=== PATIENT | female | born 1960 | race Caucasian/White ===

== ENCOUNTER 2021-12-01 09:50 | Inpatient (IN) ==
[2021-12-01] MEDS ORDERED: ACETAMINOPHEN 1,000 MG/100 ML VIAL IV STA (11:01)
[2021-12-01] MEDS ORDERED: ONDANSETRON INJ 2 MG/ML 2 ML VIAL IV STA (11:13)
[2021-12-01] MEDS ORDERED: ONDANSETRON INJ 2 MG/ML 2 ML VIAL ONE (11:14)
[2021-12-01] MEDS ORDERED: SODIUM CHLORIDE 0.9% 1000ML 1,000 ML IV SCH ×2 (11:15→15:15)
[2021-12-01 11:25] LABS: Hematocrit (blood only) 38.4 % (37-47); Hemoglobin 12.8 g/dL (12.0-16.0); Mean Corpuscular Hemoglobin 31.1 pg (25-34); Mean Corpuscular Hgb Conc 33.3 g/dL (32-36); Mean Corpuscular Volume 93.2 fL (80-100); Mean Platelet Volume 9.5 fL (7.4-10.4); Platelet Count 504 K/uL (130-400); RDW Standard Deviation 44.9 fL (36.4-46.3); Red Blood Count 4.12 M/uL (4.2-5.4); White Blood Count 20.02 K/uL (4.8-10.8)
--- NOTE | 2021-12-01 11:33 | XRay Report ---
XR chest 1V portable CLINICAL HISTORY: SEPSIS. COMPARISON STUDY: 02/04/2014 TECHNIQUE: 1 view of the chest FINDINGS: Single frontal view of the chest demonstrates the cardiomediastinal silhouette to be within normal li mits. There is a decreased inspiratory effort with elevation of the hemidiaphragms and crowding of th e bronchovascular markings at the lung bases and centrally. The lungs are clear of alveolar opacities . There is no evidence for pleural effusion. There is no evidence for vascular congestion. There is n o acute osseous pathology. IMPRESSION: 1. There is a decreased inspiratory effort with otherwise no acute chest disease. ACT 112: Negative or not required by law. Electronically signed by: Mike Hussein M.D. 12/01/2021 11:31 AM
[2021-12-01 11:38] LABS: Albumin Globulin Ratio 0.9 (0.9-2); Albumin Level 3.6 gm/dl (3.4-5.0); BUN Creatinine Ratio 13.8 (10-20); Bilirubin,Total 0.6 mg/dl (0.2-1.0); Calcium 9.2 mg/dl (8.5-10.1); Est GFR (African American) 92.9 ml/min; Est GFR (Non-African American) 80.1 ml/min; Globulin 3.8 gm/dl (2.5-4.0); Magnesium 2.1 mg/dl (1.7-2.4); Potassium 3.9 mmol/L (3.5-5.1); Total Protein 7.4 gm/dl (6.0-8.3)
[2021-12-01 11:43] LABS: Troponin I High Sensitivity 4.5 pg/ml (0-14)
[2021-12-01 11:49] LABS: INR 1.2 (0.9-1.1); Prothrombin Time 12.9 Seconds (9.0-12.0)
[2021-12-01 11:50] LABS: Basophils # (auto) 0.01 K/uL (0-0.2); Eosinophils # (auto) 0.23 K/uL (0-0.5); Eosinophils % (auto) 1.1 %; Immature Granulocytes # (auto) 0.06 K/uL (0.00-0.02); Immature Granulocytes % (auto) 0.3 %; Lymphocytes # (auto) 0.73 K/uL (1.2-3.4); Lymphocytes % (auto) 3.6 %; Monocytes # (auto) 0.85 K/uL (0.11-0.59); Monocytes % (auto) 4.2 %; Neutrophils # (auto) 18.14 K/uL (1.4-6.5); Neutrophils % (auto) 90.8 %
[2021-12-01 12:43] LABS: Adenovirus PCR Not Detected (NotDetected); Bordetella parapertussis PCR Not Detected (NotDetected); Bordetella pertussis PCR Not Detected (NotDetected); Chlamydia pneumoniae PCR Not Detected (NotDetected); Coronavirus 229E PCR Not Detected (NotDetected); Coronavirus CoV-2 (COVID19)PCR Not Detected (NotDetected); Coronavirus HKU1 PCR Not Detected (NotDetected); Coronavirus NL63 PCR Not Detected (NotDetected); Coronavirus OC43PCR Not Detected (NotDetected); Human Metapneumovirus PCR Not Detected (NotDetected); Influenza A PCR Not Detected (NotDetected); Influenza B PCR Not Detected (NotDetected); Mycoplasma pneumoniae PCR Not Detected (NotDetected); Parainfluenza Virus 1 PCR Not Detected (NotDetected); Parainfluenza Virus 2 PCR Not Detected (NotDetected); Parainfluenza Virus 3 PCR Not Detected (NotDetected); Parainfluenza Virus 4 PCR Not Detected (NotDetected); Respiratory Syncytial VirusPCR Not Detected (NotDetected); Rhinovirus/Enterovirus PCR Not Detected (NotDetected)
[2021-12-01] MEDS ORDERED: OPTIRAY 320 100ml IV ONE (13:00)
[2021-12-01] MEDS ORDERED: SODIUM CHLORIDE 0.9% 1000ML 1,000 ML IV ONE (13:05)
--- NOTE | 2021-12-01 13:19 | CT Scan Report ---
CT abd pelvis IV con only CLINICAL HISTORY: abd/low back pain, recent UTI TECHNIQUE: Helical axial images of the abdomen and pelvis were obtained and displayed. Automated dose lowering techniques and/or adjustment according to patient size were utilized for this exam. This e xam was performed with intravenous contrast. CT DOSE: 762.34 mGycm COMPARISON: None available at the time of this dictation. FINDINGS: Lower chest: Bibasilar atelectasis versus scarring is seen. A small amount of pleural fluid is seen bilaterally. Liver: Unremarkable. No focal lesions are seen. Gallbladder and biliary tree: No calcified gallstones. Normal caliber wall. No intra- or extrahepatic biliary ductal dilation. Pancreas: Unremarkable, no focal lesions. Spleen: Unremarkable. Adrenals: Unremarkable. Kidneys and ureters: Subcentimeter hypodensities are too small to characterize. Bladder: Limited evaluation due to underdistention. Reproductive organs: Unremarkable. Bowel: Unremarkable. Lymph nodes Retroperitoneal: Unremarkable. Mesenteric: Unremarkable. Pelvic: Unremarkable. Peritoneum: Normal. Vessels: Unremarkable. Abdominal wall: Unremarkable. Bones: Degenerative changes in the visualized spine. IMPRESSION: No acute abnormalities, in particular no evidence of pyelonephritis. Degenerative changes are seen in the spine without evidence of acute fracture. ACT 112: Negative or not required by law. Electronically signed by: Walter Christianson M.D. 12/01/2021 1:18 PM
--- NOTE | 2021-12-01 13:19 | Emergency Department Note ---
History of Present Illness General Chief complaint: Fever Stated complaint: NAUSEA, FEVER Time Seen by Provider: 12/01/21 10:43 Source: patient Mode of arrival: ambulatory Limitations: no limitations History of Present Illness Provider complaint: Fever, nausea, recent UTI Onset (ago): day(s) Maximum Pain Intensity: 5 Associated symptoms: + fever/chills, + loss of appetite, + malaise and + nausea/vomiting; no cough, no headaches or no shortness of breath Treatments prior to arrival: NSAID This is a 61-year-old female presents emergency department complaining of fevers, nausea/vomiting, and recent UTI. Patient states she was diagnosed by her PCP with a UTI last week. She was initially started on Bactrim and then changed to Macrobid due to a rash/allergic reaction to the Bactrim. Patient states she did complete the Macrobid 2 days ago, and yesterday began noting worsening symptoms. Patient states she has had increased fatigue over several days, no overt dizziness or syncope. She denies any change in urine or stools, denies chest pain, denies cough or cold symptoms, denies shortness of breath, denies abdominal pain. Patient does complain of some low back pain. No prior history of kidney stones or pyelonephritis. Patient denies any other change in medications or known sick contact. Patient and at bedside states they did recently travel for a son's wedding. Pt seen during a time of high acuity and national emergency pandemic while wearing PPE. Home Medications Medication Instructions Recorded Confirmed Type albuterol sulfate 90 mcg/actuation 2 puff INHALATION DIRECTED PRN 12/01/21 12/01/21 History aerosol inhaler fexofenadine 180 mg tablet 180 mg PO DAILY 12/01/21 12/01/21 History fluticasone propionate 50 2 spray INTRANASAL DAILY 12/01/21 12/01/21 History mcg/actuation nasal spray,suspension lisinopril 5 mg tablet 5 mg PO DAILY 12/01/21 12/01/21 History montelukast 10 mg tablet 10 mg PO HS PRN 12/01/21 12/01/21 History nitrofurantoin 100 mg PO BID 12/01/21 12/01/21 History monohydrate/macrocrystals 100 mg capsule Allergies Allergy/AdvReac Type Severity Reaction Status Date / Time Penicillins Allergy Severe ANAPHALYSIX Verified 12/01/21 11:18 Sulfa (Sulfonamide Allergy Severe HIVES Verified 12/01/21 11:18 Antibiotics) ciprofloxacin Allergy Intermediate RED RASH Verified 12/01/21 11:18 ON CHEST Past Med/Surg History Medical History HTN (hypertension) Intermittent asthma Seasonal allergies Surgical History History of appendectomy Family History (Updated 12/01/21 @ 20:00 by HUMBERTO Burnett) Mother Cancer Social History Smoking Status: Former smoker Hx Alcohol Use: Yes Alcohol type: beer and wine Alcohol Intake Frequency: 2-4 x/Month Hx Substance Use: No Preferred Language: Pry[place]in[place] Communication Ability: Effective [employer] Required: No Beliefs That Will Affect Care: None marital status: Current Living Situation: Spouse Other Information That Helps Us Care for You: No Feels Safe at Home: Yes Safety Concerns: Feels Safe At This Time Assistive Devices: None Review of Systems A total of 10 systems reviewed and were otherwise negative All systems reviewed & are unremarkable except as noted in HPI & below Physical Exam Vital Signs Vital Signs - 24 hr 12/01/21 09:55 12/01/21 10:53 12/01/21 11:01 Temperature 38.3 C H Temperature Source Temporal Artery Scan Pulse Rate 133 H Pulse Rate [Apical] 104 H Pulse Rate from SpO2 Sensor Respiratory Rate 18 26 H Respiratory Effort / Characteristics Blood Pressure 121/88 Blood Pressure [Left Arm] 124/81 Blood Pressure Mean 99 Blood Pressure Mean [Left Arm] 95 Pulse Oximetry 91 93 Oxygen Delivery Method Room Air Nasal Cannula Oxygen Flow Rate 3 Sepsis Recent Fever Within 48 Hours Yes Sepsis New/Unexplained Change in Mental Status No Sepsis Action Taken by Nursing No Action Required 12/01/21 11:02 12/01/21 11:06 12/01/21 11:30 Temperature Temperature Source Pulse Rate 109 H 100 H Pulse Rate [Apical] Pulse Rate from SpO2 Sensor 108 H 101 H Respiratory Rate 24 24 Respiratory Effort / Characteristics Blood Pressure 115/74 Blood Pressure [Left Arm] Blood Pressure Mean 87 Blood Pressure Mean [Left Arm] Pulse Oximetry 94 92 Oxygen Delivery Method Room Air Nasal Cannula Nasal Cannula Oxygen Flow Rate 3 3 Sepsis Recent Fever Within 48 Hours Sepsis New/Unexplained Change in Mental Status Sepsis Action Taken by Nursing 12/01/21 11:31 12/01/21 11:45 12/01/21 12:00 Temperature Temperature Source Pulse Rate 95 H 91 H Pulse Rate [Apical] Pulse Rate from SpO2 Sensor 95 H 90 Respiratory Rate 28 H 26 H Respiratory Effort / Characteristics Non-Labored Spontaneous Blood Pressure 105/66 Blood Pressure [Left Arm] Blood Pressure Mean 79 Blood Pressure Mean [Left Arm] Pulse Oximetry 93 94 Oxygen Delivery Method Nasal Cannula Nasal Cannula Nasal Cannula Oxygen Flow Rate 3 3 Sepsis Recent Fever Within 48 Hours Sepsis New/Unexplained Change in Mental Status Sepsis Action Taken by Nursing 12/01/21 12:01 12/01/21 12:09 12/01/21 12:15 Temperature 37.2 C Temperature Source Oral Pulse Rate 92 H Pulse Rate [Apical] Pulse Rate from SpO2 Sensor 92 H Respiratory Rate 22 Respiratory Effort / Characteristics Non-Labored Spontaneous Blood Pressure Blood Pressure [Left Arm] Blood Pressure Mean Blood Pressure Mean [Left Arm] Pulse Oximetry 93 Oxygen Delivery Method Nasal Cannula Oxygen Flow Rate 3 Sepsis Recent Fever Within 48 Hours Sepsis New/Unexplained Change in Mental Status Sepsis Action Taken by Nursing 12/01/21 12:30 12/01/21 13:03 Temperature Temperature Source Pulse Rate 88 Pulse Rate [Apical] Pulse Rate from SpO2 Sensor 88 88 Respiratory Rate 25 H Respiratory Effort / Characteristics Blood Pressure 96/54 L Blood Pressure [Left Arm] Blood Pressure Mean 68 Blood Pressure Mean [Left Arm] Pulse Oximetry 94 95 Oxygen Delivery Method Oxygen Flow Rate 3 3 Sepsis Recent Fever Within 48 Hours Sepsis New/Unexplained Change in Mental Status Sepsis Action Taken by Nursing GENERAL: alert, ill appearing, well nourished, no distress, non-toxic EYE EXAM: normal conjunctiva, PERRL and EOM's grossly intact OROPHARYNX: no exudate, no erythema, lips, buccal mucosa, and tongue normal and mucous membranes are moist NECK: supple, no nuchal rigidity, no adenopathy, non-tender LUNGS: Clear to auscultation. Normal chest wall mechanics, no w/r/r, no tachypn ea or increased work of breathing, mildly hypoxic on room air at 89% HEART: no murmurs, S1 normal and S2 normal, sinus tachycardia on telemetry ABDOMEN: abdomen soft, non-tender, normo-active bowel sounds, no masses, no rebound or guarding. BACK: Back is symmetrical on inspection and there is no deformity, no midline tenderness, no CVA tenderness. SKIN: no rashes and no bruising UPPER EXTREMITIES: upper extremities are grossly normal. FROM, nml pulses b/l. LOWER EXTREMITIES: No pitting edema. FROM, nml pulses b/l. NEURO EXAM: Normal sensorium, cranial nerves II-XII grossly intact, normal speech, no gross weakness of arms, no gross weakness of legs. Gross sensation intact. Course Course 1315: Patient updated on results thus far. Heart rate improved. Administered Medications Fexofenadine HCl (Fexofenadine Hcl 180 Mg Tab) 180 mg PO DAILY WYATT Stop: 01/01/22 08:59 Last Admin: 12/02/21 07:52 Dose: 180 mg Documented by: [id number] Doxycycline Hyclate 100 mg/ (Dextrose) 110 mls @ 50 mls/hr IV Q12H WYATT Stop: 12/11/21 21:59 Last Infusion: 12/02/21 14:38 Dose: 0 mls/hr Documented by: [id number] Infusion: 12/02/21 12:30 Dose: 50 mls/hr Documented by: [id number] Infusion: 12/02/21 12:23 Dose: 0 mls/hr Documented by: [id number] Admin: 12/02/21 12:01 Dose: 50 mls/hr Documented by: [id number] Infusion: 12/01/21 23:31 Dose: 0 mls/hr Documented by: [id number] Admin: 12/01/21 21:15 Dose: 50 mls/hr Documented by: [id number] Sodium Chloride (Nss 1000ml) 1,000 mls @ 125 mls/hr IV .Q8H WYATT Stop: 12/31/21 19:46 Last Admin: 12/02/21 20:04 Dose: 125 mls/hr Documented by: [id number] Infusion: 12/02/21 20:04 Dose: 125 mls/hr Documented by: [id number] Infusion: 12/02/21 15:51 Dose: 125 mls/hr Documented by: [id number] Infusion: 12/02/21 15:23 Dose: 0 mls/hr Documented by: [id number] Infusion: 12/02/21 12:30 Dose: 125 mls/hr Documented by: [id number] Infusion: 12/02/21 12:23 Dose: 0 mls/hr Documented by: [id number] Admin: 12/02/21 12:01 Dose: 125 mls/hr Documented by: [id number] Infusion: 12/02/21 12:01 Dose: 125 mls/hr Documented by: [id number] Admin: 12/02/21 04:31 Dose: 125 mls/hr Documented by: [id number] Infusion: 12/02/21 04:19 Dose: 125 mls/hr Documented by: [id number] Admin: 12/01/21 20:19 Dose: 125 mls/hr Documented by: [id number] Lisinopril (Lisinopril 5 Mg Tab) 5 mg PO DAILY WYATT Stop: 01/01/22 08:59 Last Admin: 12/02/21 07:52 Dose: 5 mg Documented by: [id number] Montelukast Sodium (Montelukast Sodium 10 Mg Tablet) 10 mg PO HS WYATT Stop: 12/31/21 20:59 Last Admin: 12/02/21 20:03 Dose: 10 mg Documented by: [id number] Admin: 12/01/21 21:14 Dose: 10 mg Documented by: [id number] Discontinued Medications Sodium Chloride (Nss 1000ml) 1,000 mls @ 999 mls/hr IV .Q1H1M WYATT Stop: 12/01/21 12:15 Last Infusion: 12/01/21 12:01 Dose: 0 mls/hr Documented by: [id number] Admin: 12/01/21 11:00 Dose: 999 mls/hr Documented by: [id number] Acetaminophen (Ofirmev) 1,000 mg in 100 mls @ 400 mls/hr IV NOW STA Stop: 12/01/21 11:15 Last Infusion: 12/01/21 11:32 Dose: 0 mls/hr Documented by: [id number] Admin: 12/01/21 11:17 Dose: 400 mls/hr Documented by: [id number] Sodium Chloride (Nss 1000ml) 1,000 mls @ 999 mls/hr IV .Q1H1M ONE Stop: 12/01/21 14:05 Last Infusion: 12/01/21 14:14 Dose: 0 mls/hr Documented by: [id number] Admin: 12/01/21 13:13 Dose: 999 mls/hr Documented by: [id number] Doxycycline Hyclate 100 mg/ (Dextrose) 110 mls @ 50 mls/hr IV NOW STA Stop: 12/01/21 15:47 Last Infusion: 12/01/21 16:04 Dose: 0 mls/hr Documented by: [id number] Admin: 12/01/21 13:52 Dose: 50 mls/hr Documented by: [id number] Sodium Chloride (Nss 1000ml) 1,000 mls @ 125 mls/hr IV .Q8H WYATT Stop: 12/31/21 15:14 Last Infusion: 12/01/21 19:48 Dose: 0 mls/hr Documented by: [id number] Admin: 12/01/21 16:20 Dose: 125 mls/hr Documented by: [id number] Ioversol (Optiray 320 100ml) 94 ml IV ONCE ONE Stop: 12/01/21 13:01 Last Admin: 12/01/21 13:01 Dose: 94 ml Documented by: [id number] Ondansetron HCl (Ondansetron Inj 2 Mg/Ml 2 Ml Vial) 4 mg IV NOW STA Stop: 12/01/21 11:14 Last Admin: 12/01/21 11:17 Dose: 4 mg Documented by: [id number] Ondansetron HCl (Ondansetron Inj 2 Mg/Ml 2 Ml Vial) Confirm Administered Dose 4 mg .ROUTE .STK-MED ONE Stop: 12/01/21 11:15 Last Admin: 12/01/21 11:17 Dose: Not Given Documented by: [id number] Medical Decision Making Differential Diagnosis Differential diagnosis: Etiologies such as viral syndrome, otitis, pharyngitis, pneumonia, influenza, meningitis, urinary tract infection, sepsis, bacteremia, as well as others were entertained. Medical Records Attestation: I reviewed the patient's medical records. Home Medications Current Medication List: was personally reviewed by me Laboratory Data Attestation: I reviewed the patient's lab results. Result diagrams: 12/02/21 05:30 12/02/21 05:30 Lab Results 12/01/21 12/01/21 12/01/21 Range/Units 10:58 10:58 10:58 WBC 20.02 H (4.8-10.8) K/uL RBC 4.12 L (4.2-5.4) M/uL Hgb 12.8 (12.0-16.0) g/dL Hct 38.4 (37-47) % MCV 93.2 (80-100) fL MCH 31.1 (25-34) pg MCHC 33.3 (32-36) g/dL RDW Std Deviation 44.9 (36.4-46.3) fL RDW Coeff of Latonya 13.0 (11.5-14.5) % Plt Count 504 H (130-400) K/uL MPV 9.5 (7.4-10.4) fL Immature Gran % (Auto) 0.3 % Neut % (Auto) 90.8 % Lymph % (Auto) 3.6 % [place] % (Auto) 4.2 % Eos % (Auto) 1.1 % Baso % (Auto) 0.0 % Neut # (Auto) 18.14 H (1.4-6.5) K/uL Lymph # (Auto) 0.73 L (1.2-3.4) K/uL [place] # (Auto) 0.85 H (0.11-0.59) K/uL Eos # (Auto) 0.23 (0-0.5) K/uL Baso # (Auto) 0.01 (0-0.2) K/uL Immature Gran # (Auto) 0.06 H (0.00-0.02) K/uL PT 12.9 H (9.0-12.0) Seconds INR 1.2 H (0.9-1.1) Sodium 132 L (136-145) mmol/L Potassium 3.9 (3.5-5.1) mmol/L Chloride 99 (98-107) mmol/L Carbon Dioxide 27 (21-32) mmol/L Anion Gap 6 (3-11) BUN 11 (6-23) mg/dl Creatinine 0.80 (0.6-1.2) mg/dl Est Cr Clr Drug Dosing 70.0 ml/min Est GFR ( Amer) 92.9 ml/min Est GFR (Non-Af Amer) 80.1 ml/min BUN/Creatinine Ratio 13.8 (10-20) Glucose 136 H (70-99(Fasting)) mg/dl Lactate (0.4-2.0) mmol/L Calcium 9.2 (8.5-10.1) mg/dl Magnesium 2.1 (1.7-2.4) mg/dl Total Bilirubin 0.6 (0.2-1.0) mg/dl AST 16 (13-39) U/L ALT 20 (7-52) U/L Alkaline Phosphatase 86 (34-104) U/L Troponin I High Sens 4.5 (0-14) pg/ml Total Protein 7.4 (6.0-8.3) gm/dl Albumin 3.6 (3.4-5.0) gm/dl Globulin 3.8 (2.5-4.0) gm/dl Albumin/Globulin Ratio 0.9 (0.9-2) Procalcitonin (0-0.5) ng/ml Urine Color Urine Appearance (Clear) Urine pH (4.5-7.5) Ur Specific [place] (1.000-1.030) Urine Protein (Negative) Urine Glucose (UA) (Negative) Urine Ketones (Negative) Urine Blood (Negative) Urine Nitrite (Negative) Urine Bilirubin (Negative) Urine Urobilinogen (Negative) Ur Leukocyte Esterase (Negative) Urine WBC (Auto) (0-5) /hpf Urine RBC (Auto) (0-4) /hpf U Hyaline Cast (Auto) (0-5) /lpf U Epithel Cells (Auto) (0-5) /lpf Urine Bacteria (Auto) (Negative) Adenovirus (PCR) (NotDetected) Anaplasma Smear See Comment Babesia Smear See Comment B. pertussis DNA (PCR) (NotDetected) B.parapertussis DNA PCR (NotDetected) Lyme Disease IgG Ab (Negative) Lyme Disease IgM Ab (Negative) C. pneumoniae DNA (PCR) (NotDetected) Coronavirus OC43 (PCR) (NotDetected) Coronavirus HKU1 (PCR) (NotDetected) Coronavirus 229E (PCR) (NotDetected) SARS-CoV-2 (PCR) (NotDetected) Coronavirus NL63 (PCR) (NotDetected) Human Metapneumovir PCR (NotDetected) Influenza Type A (PCR) (NotDetected) Influenza Type B (PCR) (NotDetected) M. pneumoniae (PCR) (NotDetected) Parainfluenza 1 (PCR) (NotDetected) Parainfluenza 2 (PCR) (NotDetected) Parainfluenza 3 (PCR) (NotDetected) Parainfluenza 4 (PCR) (NotDetected) RSV (PCR) (NotDetected) Entero/Rhino (PCR) (NotDetected) 12/01/21 12/01/21 12/01/21 Range/Units 10:58 10:58 10:58 WBC (4.8-10.8) K/uL RBC (4.2-5.4) M/uL Hgb (12.0-16.0) g/dL Hct (37-47) % MCV (80-100) fL MCH (25-34) pg MCHC (32-36) g/dL RDW Std Deviation (36.4-46.3) fL RDW Coeff of Latonya (11.5-14.5) % Plt Count (130-400) K/uL MPV (7.4-10.4) fL Immature Gran % (Auto) % Neut % (Auto) % Lymph % (Auto) % [place] % (Auto) % Eos % (Auto) % Baso % (Auto) % Neut # (Auto) (1.4-6.5) K/uL Lymph # (Auto) (1.2-3.4) K/uL [place] # (Auto) (0.11-0.59) K/uL Eos # (Auto) (0-0.5) K/uL Baso # (Auto) (0-0.2) K/uL Immature Gran # (Auto) (0.00-0.02) K/uL PT (9.0-12.0) Seconds INR (0.9-1.1) Sodium (136-145) mmol/L Potassium (3.5-5.1) mmol/L Chloride (98-107) mmol/L Carbon Dioxide (21-32) mmol/L Anion Gap (3-11) BUN (6-23) mg/dl Creatinine (0.6-1.2) mg/dl Est Cr Clr Drug Dosing ml/min Est GFR ( Amer) ml/min Est GFR (Non-Af Amer) ml/min BUN/Creatinine Ratio (10-20) Glucose (70-99(Fasting)) mg/dl Lactate 0.7 (0.4-2.0) mmol/L Calcium (8.5-10.1) mg/dl Magnesium (1.7-2.4) mg/dl Total Bilirubin (0.2-1.0) mg/dl AST (13-39) U/L ALT (7-52) U/L Alkaline Phosphatase (34-104) U/L Troponin I High Sens (0-14) pg/ml Total Protein (6.0-8.3) gm/dl Albumin (3.4-5.0) gm/dl Globulin (2.5-4.0) gm/dl Albumin/Globulin Ratio (0.9-2) Procalcitonin 0.54 H (0-0.5) ng/ml Urine Color Urine Appearance (Clear) Urine pH (4.5-7.5) Ur Specific [place] (1.000-1.030) Urine Protein (Negative) Urine Glucose (UA) (Negative) Urine Ketones (Negative) Urine Blood (Negative) Urine Nitrite (Negative) Urine Bilirubin (Negative) Urine Urobilinogen (Negative) Ur Leukocyte Esterase (Negative) Urine WBC (Auto) (0-5) /hpf Urine RBC (Auto) (0-4) /hpf U Hyaline Cast (Auto) (0-5) /lpf U Epithel Cells (Auto) (0-5) /lpf Urine Bacteria (Auto) (Negative) Adenovirus (PCR) (NotDetected) Anaplasma Smear Babesia Smear B. pertussis DNA (PCR) (NotDetected) B.parapertussis DNA PCR (NotDetected) Lyme Disease IgG Ab Positive A (Negative) Lyme Disease IgM Ab Equivocal A (Negative) C. pneumoniae DNA (PCR) (NotDetected) Coronavirus OC43 (PCR) (NotDetected) Coronavirus HKU1 (PCR) (NotDetected) Coronavirus 229E (PCR) (NotDetected) SARS-CoV-2 (PCR) (NotDetected) Coronavirus NL63 (PCR) (NotDetected) Human Metapneumovir PCR (NotDetected) Influenza Type A (PCR) (NotDetected) Influenza Type B (PCR) (NotDetected) M. pneumoniae (PCR) (NotDetected) Parainfluenza 1 (PCR) (NotDetected) Parainfluenza 2 (PCR) (NotDetected) Parainfluenza 3 (PCR) (NotDetected) Parainfluenza 4 (PCR) (NotDetected) RSV (PCR) (NotDetected) Entero/Rhino (PCR) (NotDetected) 12/01/21 12/01/21 Range/Units 11:27 13:14 WBC (4.8-10.8) K/uL RBC (4.2-5.4) M/uL Hgb (12.0-16.0) g/dL Hct (37-47) % MCV (80-100) fL MCH (25-34) pg MCHC (32-36) g/dL RDW Std Deviation (36.4-46.3) fL RDW Coeff of Latonya (11.5-14.5) % Plt Count (130-400) K/uL MPV (7.4-10.4) fL Immature Gran % (Auto) % Neut % (Auto) % Lymph % (Auto) % [place] % (Auto) % Eos % (Auto) % Baso % (Auto) % Neut # (Auto) (1.4-6.5) K/uL Lymph # (Auto) (1.2-3.4) K/uL [place] # (Auto) (0.11-0.59) K/uL Eos # (Auto) (0-0.5) K/uL Baso # (Auto) (0-0.2) K/uL Immature Gran # (Auto) (0.00-0.02) K/uL PT (9.0-12.0) Seconds INR (0.9-1.1) Sodium (136-145) mmol/L Potassium (3.5-5.1) mmol/L Chloride (98-107) mmol/L Carbon Dioxide (21-32) mmol/L Anion Gap (3-11) BUN (6-23) mg/dl Creatinine (0.6-1.2) mg/dl Est Cr Clr Drug Dosing ml/min Est GFR ( Amer) ml/min Est GFR (Non-Af Amer) ml/min BUN/Creatinine Ratio (10-20) Glucose (70-99(Fasting)) mg/dl Lactate (0.4-2.0) mmol/L Calcium (8.5-10.1) mg/dl Magnesium (1.7-2.4) mg/dl Total Bilirubin (0.2-1.0) mg/dl AST (13-39) U/L ALT (7-52) U/L Alkaline Phosphatase (34-104) U/L Troponin I High Sens (0-14) pg/ml Total Protein (6.0-8.3) gm/dl Albumin (3.4-5.0) gm/dl Globulin (2.5-4.0) gm/dl Albumin/Globulin Ratio (0.9-2) Procalcitonin (0-0.5) ng/ml Urine Color Yellow Urine Appearance Clear (Clear) Urine pH 6.5 (4.5-7.5) Ur Specific [place] 1.017 (1.000-1.030) Urine Protein Trace H (Negative) Urine Glucose (UA) Negative (Negative) Urine Ketones Negative (Negative) Urine Blood 1+ H (Negative) Urine Nitrite Negative (Negative) Urine Bilirubin Negative (Negative) Urine Urobilinogen Negative (Negative) Ur Leukocyte Esterase Negative (Negative) Urine WBC (Auto) 1-5 (0-5) /hpf Urine RBC (Auto) 5-10 H (0-4) /hpf U Hyaline Cast (Auto) 1-5 (0-5) /lpf U Epithel Cells (Auto) 20-30 H (0-5) /lpf Urine Bacteria (Auto) Negative (Negative) Adenovirus (PCR) Not Detected (NotDetected) Anaplasma Smear Babesia Smear B. pertussis DNA (PCR) Not Detected (NotDetected) B.parapertussis DNA PCR Not Detected (NotDetected) Lyme Disease IgG Ab (Negative) Lyme Disease IgM Ab (Negative) C. pneumoniae DNA (PCR) Not Detected (NotDetected) Coronavirus OC43 (PCR) Not Detected (NotDetected) Coronavirus HKU1 (PCR) Not Detected (NotDetected) Coronavirus 229E (PCR) Not Detected (NotDetected) SARS-CoV-2 (PCR) Not Detected (NotDetected) Coronavirus NL63 (PCR) Not Detected (NotDetected) Human Metapneumovir PCR Not Detected (NotDetected) Influenza Type A (PCR) Not Detected (NotDetected) Influenza Type B (PCR) Not Detected (NotDetected) M. pneumoniae (PCR) Not Detected (NotDetected) Parainfluenza 1 (PCR) Not Detected (NotDetected) Parainfluenza 2 (PCR) Not Detected (NotDetected) Parainfluenza 3 (PCR) Not Detected (NotDetected) Parainfluenza 4 (PCR) Not Detected (NotDetected) RSV (PCR) Not Detected (NotDetected) Entero/Rhino (PCR) Not Detected (NotDetected) Imaging Data Radiologist's Impression: Chest X-Ray 12/01/21 11:01 XR chest 1V portable CLINICAL HISTORY: SEPSIS. COMPARISON STUDY: 02/04/2014 TECHNIQUE: 1 view of the chest FINDINGS: Single frontal view of the chest demonstrates the cardiomediastinal silhouette to be within normal limits. There is a decreased inspiratory effort with elevation of the hemidiaphragms and crowding of the bronchovascular markings at the lung bases and centrally. The lungs are clear of alveolar opacities. There is no evidence for pleural effusion. There is no evidence for vascular congesti on. There is no acute osseous pathology. IMPRESSION: 1. There is a decreased inspiratory effort with otherwise no acute chest disease. ACT 112: Negative or not required by law. Electronically signed by: Mike Hussein M.D. 12/01/2021 11:31 AM MDM Narrative An order was placed for continuous cardiac monitoring. The monitor shows a rate of 117__ with _sinus tachycardia__ rhythm. This is a 61-year-old female presents to the emergency department complaining of fevers, nausea, generalized weakness and recent UTI. Patient was ill-appearing on exam, was noted to be tachycardic, tachypneic, febrile on arrival, with mild hypoxia on room air at 89% despite no complaints of respiratory distress or shortness of breath. A sepsis work-up was started and patient given IV fluids and IV Tylenol for fever, IV Zofran for the nausea. Patient's heart rate and respiratory rate did improve. Patient's oxygenation improved on 1 to 2 L via nasal cannula. Lab work revealed a significant leukocytosis at 20, mildly elevated procalcitonin, other electrolytes, renal and liver profiles were reassuring. Chest x-ray did not reveal any acute pulmonary pathology, CT of the abdomen pelvis was also reassuring without evidence for pyelonephritis, or acute GI pathology given nausea and vomiting. Patient's urine did not reveal persistent UTI, Lyme test ultimately positive and patient started on doxycycline. I discussed all results with patient and at bedside, we discussed the need for further evaluation and careful monitoring given lab abnormalities and ill condition. Patient did report some improvement subjectively, and vital signs were improved with volume resuscitation and treatment of symptoms. Patient did receive 30 mL/KG of fluids per sepsis criteria. Patient had not empirically been started on broad-spectrum antibiotics due to significant allergies and her concern for potential allergic reaction again. Upon additional discussion of use of doxycycline given positive Lyme, she was in agreement with IV antibiotics. Unclear etiology of hypoxia. No history of pulmonary pathology. I feel patient low risk overall for PE. No evidence of cardiomegaly or CHF on chest x-ray. Troponin negative. Case discussed with hospitalist for additional evaluation and management. Impression & Plan Sepsis, Lyme disease, Dehydration, Hypoxia Discharge Plan Visit Data Chief Complaint: Fever Stated Complaint: NAUSEA, FEVER ED Provider: Ana Albert Discharge Problem: Sepsis, Lyme disease, Dehydration, Hypoxia Patient Disposition: Admitted As Inpatient Discharge Instructions Interventions: ED Discharge Assessment Last Done: 12/01/21 18:27 Discharge Problem: Sepsis Qualifiers: Sepsis type: sepsis due to unspecified organism Sepsis acute organ dysfunction status: with acute organ dysfunction Severe sepsis acute organ dysfunction type: acute respiratory failure Acute respiratory failure type: with hypoxia Severe sepsis shock status: without septic shock Qualified Code(s): A41.9 - Sepsis, unspecified organism
[2021-12-01 13:24] LABS: Lyme Ab IgG w/WB Rflx Positive (Negative)
[2021-12-01 13:25] LABS: Lyme Ab IgM w/WB Rflx Equivocal (Negative)
[2021-12-01] MEDS ORDERED: DOXYCYCLINE HYCLATE 100 MG in DEXTROSE 5% 100 ML IV STA (13:36)
[2021-12-01 13:52] LABS: Appearance Urine Clear (Clear); Bacteria Urine Automated Negative (Negative); Bilirubin Urine Negative (Negative); Blood Urine 1+ (Negative); Color Urine Yellow; Epithelial Cell Urine Auto 20-30 /lpf (0-5); Glucose Urine UA Negative (Negative); Ketones Urine Negative (Negative); Leukocyte Esterase Urine Negative (Negative); Nitrite Urine Negative (Negative); Protein Urine Trace (Negative); Specific Gravity Urine 1.017 (1.000-1.030); Urobilinogen Urine Negative (Negative); pH Urine 6.5 (4.5-7.5)
--- NOTE | 2021-12-01 16:35 | Communication Note ---
Date of Service: December 01, 2021 History and physical exam performed by me. History notable for recent UTI about 10 days ago that has resolved with antibiotics treated by PCP, started having nausea, weakness, loss of appetite for the past day. Reports occasional dry cough which she associated with her seasonal allergies. On physical exam, General: No acute distress and not ill appearing Eyes: PERRL, conjunctivae normal, not pale, anicteric sclerae, EOM intact bilaterally ENMT: External ear and nose normal, oropharynx normal Respiratory: Normal respiratory effort, no respiratory distress, lungs clear to auscultation, no crackles and no wheezes Cardiovascular: RRR S1 S2 Gastrointestinal (Abdomen): Abdomen is not distended, soft, non-tender to palpation, no guarding, no palpable hepatosplenomegaly, normal bowel sounds Musculoskeletal: No cyanosis or clubbing, all extremities motor strength 5/5 Genitourinary: No CVA tenderness Neurologic: Alert and oriented x 3, No focal weakness, sensation grossly intact Psychiatric: Alert and oriented x 3, euthymic affect, no depressed affect Lab work notable for white blood cell count of 20,000, platelet of 504, sodium of 132, procalcitonin of 0.54 Lyme disease IgG G+, IgM echo vocal Abdominal pelvic CT did not show any acute abnormalities Chest x-ray did not show any acute chest disease. Sepsis Lyme disease Patient met SIRS criteria with leukocytosis, tachycardia and tachypnea on presentation. Lactate is normal. Lyme screen is positive. Send other tickborne panel According to , patient gardens a lot. Given also recently [place] sometime in the past 8 weeks. Continue IV doxycycline Follow-up blood cultures Wean off oxygen Agree with plans as detailed by Rdaha PAUL
--- NOTE | 2021-12-01 18:23 | Electrocardiogram Report ---
Test Reason : Blood Pressure : / mmHG Vent. Rate : 100 BPM Atrial Rate : 100 BPM P-R Int : 138 ms QRS Dur : 094 ms QT Int : 344 ms P-R-T Axes : 020 007 024 degrees QTc Int : 443 ms Normal sinus rhythm Normal ECG No previous ECGs available Confirmed by Nicholas Hickey ([id number]) on 12/01/2021 6:23:03 PM Referred By: Kim Levin Confirmed By:Jakub Hickey
[2021-12-01] MEDS ORDERED: ACETAMINOPHEN 325 MG TAB PO PRN (19:47)
--- NOTE | 2021-12-01 20:01 | History & Physical Report ---
Date of Service December 01, 2021 Assessment & Plan (1) Sepsis: (2) Febrile illness: Plan: Admit to [facility] Patient presenting from home with reports of generalized weakness, malaise, nausea, fevers Treated for UTI last week by PCP. Urine culture 11/24 showed no growth. Patient reports urinary symptoms have resolved On presentation temp 38.3, HR in the 130s, WBC 20K. BP stable, lactic acid 0.7. Temp and HR improved after Tylenol and IVF. Lyme IgG positive, IgM equivocal. Western blot pending Anaplasma and Babesia smears negative CT ABD/pelvis unremarkable for acute findings Symptoms likely due to Lyme disease Received IV doxycycline in the ED, continue with (3) HTN (hypertension): Plan: BP controlled, continue lisinopril (4) DVT prophylaxis: Plan: SCDs Admission and Anticipated Discharge Date Admission Date: December 01, 2021 History of Present Illness Chief Complaint: Weakness, nausea, fever Primary Care Provider: Kim Levin DO 61-year-old female with PMH seasonal allergies, intermittent asthma, HTN, and other problems listed below who presents to the ED for evaluation of weakness, nausea, fever. Last week, patient was treated for a UTI. She was placed on Cipro on 11/22 however developed a rash which was changed to Macrobid on 11/23. Urine culture was obtained on 11/24 that showed no growth. Patient reports urinary symptoms have resolved. Patient reports that over the past few days, she has had nausea and generalized weakness. She also has been running intermittent fevers. She reports a poor appetite and some nausea however no vomiting, abdominal pain, diarrhea. Patient denies chest pain shortness of breath. She reports a mild cough that she attributes to her allergies. No lightheadedness, dizziness, diaphoresis, syncopal events. In the ED, patient presented febrile 38.3, HR in the 130s, WBC 20K. Lyme IgG is positive and IgM is equivocal. Western blot pending. UA does not suggest UTI. CT ABD/pelvis negative for acute findings. Patient was given Tylenol, IV doxycycline, IVF with improvement in HR and fever. Allergies Allergy/AdvReac Type Severity Reaction Status Date / Time Penicillins Allergy Severe ANAPHALYSIX Verified 12/01/21 11:18 Sulfa (Sulfonamide Allergy Severe HIVES Verified 12/01/21 11:18 Antibiotics) ciprofloxacin Allergy Intermediate RED RASH Verified 12/01/21 11:18 ON CHEST Home Medications Medication Instructions Recorded Confirmed Type albuterol sulfate 90 mcg/actuation 2 puff INHALATION DIRECTED PRN 12/01/21 12/01/21 History aerosol inhaler fexofenadine 180 mg tablet 180 mg PO DAILY 12/01/21 12/01/21 History fluticasone propionate 50 2 spray INTRANASAL DAILY 12/01/21 12/01/21 History mcg/actuation nasal spray,suspension lisinopril 5 mg tablet 5 mg PO DAILY 12/01/21 12/01/21 History montelukast 10 mg tablet 10 mg PO HS PRN 12/01/21 12/01/21 History nitrofurantoin 100 mg PO BID 12/01/21 12/01/21 History monohydrate/macrocrystals 100 mg capsule Past Med/Surg History Medical History HTN (hypertension) Intermittent asthma Seasonal allergies Surgical History History of appendectomy Family History (Updated 12/01/21 @ 20:00 by HUMBERTO Burnett) Mother Cancer Social History Smoking Status: Former smoker Hx Alcohol Use: Yes Alcohol Intake Frequency: 2-4 x/Month Preferred Language: Somali Feels Safe at Home: Yes Review of Systems Review of Systems: ROS per HPI, all other systems reviewed and negative Physical Exam Physical Exam: please refer to Dr. Moncada's addendum for physical exam Results & Data Results & [facility] ([facility]) Vital Signs (Past 12 Hours) Vital Signs Temp Pulse Pulse Resp BP BP Pulse Ox 12/01/21 18:00 119/82 96 12/01/21 17:45 97 12/01/21 17:30 95 12/01/21 17:15 95 12/01/21 17:00 111/71 95 12/01/21 16:45 95 12/01/21 16:30 94 12/01/21 16:15 94 12/01/21 16:00 120/72 94 12/01/21 15:45 94 12/01/21 15:30 104/64 97 12/01/21 15:15 93 12/01/21 15:00 103/69 93 12/01/21 14:45 95 12/01/21 14:30 106/68 92 12/01/21 14:15 94 12/01/21 14:00 107/70 94 12/01/21 13:45 96 12/01/21 13:30 94/64 L 96 12/01/21 13:15 95 12/01/21 13:03 95 12/01/21 12:30 88 25 H 96/54 L 94 12/01/21 12:15 92 H 22 93 12/01/21 12:09 37.2 C 12/01/21 12:00 91 H 26 H 105/66 94 12/01/21 11:45 95 H 28 H 93 12/01/21 11:30 100 H 24 115/74 92 12/01/21 11:06 109 H 24 94 12/01/21 11:01 104 H 26 H 93 12/01/21 10:53 124/81 12/01/21 09:55 38.3 C H 133 H 18 121/88 91 Laboratory Results Short CBC 12/01/21 Range/Units 10:58 WBC 20.02 H (4.8-10.8) K/uL Hgb 12.8 (12.0-16.0) g/dL Hct 38.4 (37-47) % Plt Count 504 H (130-400) K/uL BMP 12/01/21 10:58 Sodium 132 L Potassium 3.9 Chloride 99 Carbon Dioxide 27 BUN 11 Creatinine 0.80 Glucose 136 H Calcium 9.2 Liver Function 12/01/21 Range/Units 10:58 Total Bilirubin 0.6 (0.2-1.0) mg/dl AST 16 (13-39) U/L ALT 20 (7-52) U/L Alkaline Phosphatase 86 (34-104) U/L Albumin 3.6 (3.4-5.0) gm/dl Urine 12/01/21 Range/Units 13:14 Urine Color Yellow Urine Appearance Clear (Clear) Urine pH 6.5 (4.5-7.5) Ur Specific [place] 1.017 (1.000-1.030) Urine Protein Trace H (Negative) Urine Glucose (UA) Negative (Negative) Diagnostic Findings Chest X-Ray 12/01/21 11:01 XR chest 1V portable CLINICAL HISTORY: SEPSIS. COMPARISON STUDY: 02/04/2014 TECHNIQUE: 1 view of the chest FINDINGS: Single frontal view of the chest demonstrates the cardiomediastinal silhouette to be within normal limits. There is a decreased inspiratory effort with elevation of the hemidiaphragms and crowding of the bronchovascular markings at the lung bases and centrally. The lungs are clear of alveolar opacities. There is no evidence for pleural effusion. There is no evidence for vascular congestion. There is no acute osseous pathology. IMPRESSION: 1. There is a decreased inspiratory effort with otherwise no acute chest disease. ACT 112: Negative or not required by law. Electronically signed by: Mike Hussein M.D. 12/01/2021 11:31 AM Abdomen/Pelvis CT 12/01/21 11:31 CT abd pelvis IV con only CLINICAL HISTORY: abd/low back pain, recent UTI TECHNIQUE: Helical axial images of the abdomen and pelvis were obtained and displayed. Automated dose lowering techniques and/or adjustment according to patient size were utilized for this exam. This exam was performed with intravenous contrast. CT DOSE: 762.34 mGycm COMPARISON: None available at the time of this dictation. FINDINGS: Lower chest: Bibasilar atelectasis versus scarring is seen. A small amount of pleural fluid is seen bilaterally. Liver: Unremarkable. No focal lesions are seen. Gallbladder and biliary tree: No calcified gallstones. Normal caliber wall. No intra- or extrahepatic biliary ductal dilation. Pancreas: Unremarkable, no focal lesions. Spleen: Unremarkable. Adrenals: Unremarkable. Kidneys and ureters: Subcentimeter hypodensities are too small to characterize. Bladder: Limited evaluation due to underdistention. Reproductive organs: Unremarkable. Bowel: Unremarkable. Lymph nodes Retroperitoneal: Unremarkable. Mesenteric: Unremarkable. Pelvic: Unremarkable. Peritoneum: Normal. Vessels: Unremarkable. Abdominal wall: Unremarkable. Bones: Degenerative changes in the visualized spine. IMPRESSION: No acute abnormalities, in particular no evidence of pyelonephritis. Degenerative changes are seen in the spine without evidence of acute fracture. ACT 112: Negative or not required by law. Electronically signed by: Walter Christianson M.D. 12/01/2021 1:18 PM Code Status & VTE Plan VTE Prophylaxis Plan VTE Prophylaxis will be ordered: Yes Supervising Physician Co-Signing Physician Notes History and physical exam performed by me. History notable for recent UTI about 10 days ago that has resolved with antibiotics treated by PCP, started having nausea, weakness, loss of appetite for the past day. Reports occasional dry cough which she associated with her seasonal allergies. On physical exam, General:No acute distress and not ill appearing Eyes:PERRL, conjunctivae normal, not pale, anicteric sclerae, EOM intact bilaterally ENMT:External ear and nose normal, oropharynx normal Respiratory:Normal respiratory effort, no respiratory distress, lungs clear to auscultation, no crackles and no wheezes Cardiovascular:RRR S1 S2 Gastrointestinal (Abdomen): Abdomen is not distended, soft, non-tender to palpation, no guarding, no palpable hepatosplenomegaly, normal bowel sounds Musculoskeletal:No cyanosis or clubbing, all extremities motor strength 5/5 Genitourinary:No CVA tenderness Neurologic:Alert and oriented x 3, No focal weakness, sensation grossly intact Psychiatric:Alert and oriented x 3, euthymic affect, no depressed affect Lab work notable for white blood cell count of 20,000, platelet of 504, sodium of 132, procalcitonin of 0.54 Lyme disease IgG G+, IgM echo vocal Abdominal pelvic CT did not show any acute abnormalities Chest x-ray did not show any acute chest disease. Sepsis Lyme disease Patient met SIRS criteria with leukocytosis, tachycardia and tachypnea on presentation. Lactate is normal. Lyme screen is positive. Send other tickborne panel According to , patient gardens a lot. Given also recently [place] sometime in the past 8 weeks. Continue IV doxycycline Follow-up blood cultures Wean off oxygen Agree with plans as detailed by Radha PAUL
[2021-12-01] MEDS: SODIUM CHLORIDE 0.9% 1000ML 1,000 ML IV SCH (20:19)
[2021-12-01] MEDS: MONTELUKAST SODIUM 10 MG TABLET PO SCH (21:14)
[2021-12-01] MEDS: DOXYCYCLINE HYCLATE 100 MG in DEXTROSE 5% 100 ML IV SCH (21:15)
[2021-12-02] MEDS: SODIUM CHLORIDE 0.9% 1000ML 1,000 ML IV SCH ×3 (04:31→20:04)
[2021-12-02 05:51] LABS: Hematocrit (blood only) 35.4 % (37-47); Hemoglobin 11.5 g/dL (12.0-16.0); Mean Corpuscular Hemoglobin 31.1 pg (25-34); Mean Corpuscular Hgb Conc 32.5 g/dL (32-36); Mean Corpuscular Volume 95.7 fL (80-100); Mean Platelet Volume 9.5 fL (7.4-10.4); Platelet Count 404 K/uL (130-400); RDW Coefficient of Variation 13.1 % (11.5-14.5); RDW Standard Deviation 45.9 fL (36.4-46.3); White Blood Count 8.21 K/uL (4.8-10.8)
[2021-12-02 06:08] LABS: BUN Creatinine Ratio 12.7 (10-20); Calcium 8.4 mg/dl (8.5-10.1); Creatinine Clr Calc Pharmacy 88.9 ml/min; Est GFR (Non-African American) 97.5 ml/min; Potassium 3.7 mmol/L (3.5-5.1)
[2021-12-02] MEDS: lisinopril 5 MG TAB PO SCH (07:52)
[2021-12-02] MEDS: FEXOFENADINE HCL 180 MG TAB PO SCH (07:52)
[2021-12-02] MEDS: DOXYCYCLINE HYCLATE 100 MG in DEXTROSE 5% 100 ML IV SCH ×2 (12:01→21:59)
[2021-12-02] MEDS: MONTELUKAST SODIUM 10 MG TABLET PO SCH (20:03)
--- NOTE | 2021-12-02 23:51 | Hospitalist Progress Note ---
Date of Service December 02, 2021 Assessment & Plan (1) Sepsis: (2) Febrile illness: Plan: Sepsis Patient met SIRS criteria with leukocytosis, tachycardia and tachypnea on presentation. Temp 38.3, HR in the 130s, WBC 20K. BP stable, lactic acid 0.7. Possible related to Lyme disease Patient presenting from home with reports of generalized weakness, malaise, nausea, fevers Treated for UTI last week by PCP. Urine culture 11/24 showed no growth. Patient reports urinary symptoms have resolved Lyme IgG positive, IgM equivocal. Western blot pending Anaplasma and Babesia smears negative Blood cx no growth CT ABD/pelvis unremarkable for acute findings Currently on IV doxycycline, will transition to PO doxy (3) HTN (hypertension): Plan: BP controlled, continue lisinopril (4) DVT prophylaxis: Plan: SCDs/ ambulate Admission and Anticipated Discharge Date Admission Date: December 01, 2021 Subjective Patient was seen and examined for follow-up of fever and weakness Lying in bed with at bedside with no acute distress She is very anxious to be discharged Denies any chest pain, palpitation, dizziness, shortness of breath. Review of Systems Review of Systems: All systems reviewed & are unremarkable except as noted in Subjective Physical Exam Physical Exam: General- No acute distress Head- atraumatic Eyes- PERRL, EOMI, ENT- oropharynx clear Neck- supple, no JVD Lungs- clear to auscultation Heart- regular rhythm; no murmur Abdomen- normal bowel sounds, soft, nontender Extremities- no calf tenderness Neuro- alert, oriented x 3; PERRL, EOMI; no facial palsy; no dysarthria Skin- warm & dry Results & Data Results & Data ([facility]) Vital Signs (Past 12 Hours) Vital Signs Temp Pulse Resp BP Pulse Ox 12/02/21 22:41 36.4 C L 72 15 122/82 94 12/02/21 15:02 37.1 C 71 16 122/81 95 (1) Sepsis Acute respiratory failure type: with hypoxia Sepsis acute organ dysfunction status: with acute organ dysfunction Sepsis type: sepsis due to unspecified organism Severe sepsis acute organ dysfunction type: acute respiratory failure Severe sepsis shock status: without septic shock Qualified Code(s): A41.9 - Sepsis, unspecified organism; R65.20 - Severe sepsis without septic shock; J96.01 - Acute respiratory failure with hypoxia
[2021-12-03] MEDS: lisinopril 5 MG TAB PO SCH (08:55)
[2021-12-03] MEDS: FEXOFENADINE HCL 180 MG TAB PO SCH (08:55)
[2021-12-03] MEDS ORDERED: DOXYCYCLINE HYCLATE 100 MG CAP PO SCH (09:00)
--- NOTE | 2021-12-03 12:52 | Discharge Summary ---
Date of Service December 03, 2021 Admission HPI Per Admitting Provider 61-year-old female with PMH seasonal allergies, intermittent asthma, HTN, and other problems listed below who presents to the ED for evaluation of weakness, nausea, fever. Last week, patient was treated for a UTI. She was placed on Cipro on 11/22 however developed a rash which was changed to Macrobid on 11/23. Urine culture was obtained on 11/24 that showed no growth. Patient reports urinary symptoms have resolved. Patient reports that over the past few days, she has had nausea and generalized weakness. She also has been running intermittent fevers. She reports a poor appetite and some nausea however no vomiting, abdominal pain, diarrhea. Patient denies chest pain shortness of breath. She reports a mild cough that she attributes to her allergies. No lightheadedness, dizziness, diaphoresis, syncopal events. In the ED, patient presented febrile 38.3, HR in the 130s, WBC 20K. Lyme IgG is positive and IgM is equivocal. Western blot pending. UA does not suggest UTI. CT ABD/pelvis negative for acute findings. Patient was given Tylenol, IV doxycycline, IVF with improvement in HR and fever. Admission Exam Per Admitting Provider General:No acute distress and not ill appearing Eyes:PERRL, conjunctivae normal, not pale, anicteric sclerae, EOM intact bilaterally ENMT:External ear and nose normal, oropharynx normal Respiratory:Normal respiratory effort, no respiratory distress, lungs clear to auscultation, no crackles and no wheezes Cardiovascular:RRR S1 S2 Gastrointestinal (Abdomen): Abdomen is not distended, soft, non-tender to palpation, no guarding, no palpable hepatosplenomegaly, normal bowel sounds Musculoskeletal:No cyanosis or clubbing, all extremities motor strength 5/5 Genitourinary:No CVA tenderness Neurologic:Alert and oriented x 3, No focal weakness, sensation grossly intact Psychiatric:Alert and oriented x 3, euthymic affect, no depressed affect Principal Diagnosis Sepsis Febrile illness Lyme disease HTN (hypertension) Discharge Exam General- No acute distress Head- atraumatic Eyes- PERRL, EOMI, ENT- oropharynx clear Neck- supple, no JVD Lungs- clear to auscultation Heart- regular rhythm; no murmur Abdomen- normal bowel sounds, soft, nontender Extremities- no calf tenderness Neuro- alert, oriented x 3; PERRL, EOMI; no facial palsy; no dysarthria Skin- warm & dry Discharge Data Allergies Allergy/AdvReac Type Severity Reaction Status Date / Time Penicillins Allergy Severe ANAPHALYSIX Verified 12/01/21 11:18 Sulfa (Sulfonamide Allergy Severe HIVES Verified 12/01/21 11:18 Antibiotics) ciprofloxacin Allergy Intermediate RED RASH Verified 12/01/21 11:18 ON CHEST Consultations 12/01/21 15:13 ED Decision to Admit Stat Ordered Studies 12/01/21 11:31 CT abd pelvis IV con only Stat CT abd pelvis IV con only CLINICAL HISTORY: abd/low back pain, recent UTI TECHNIQUE: Helical axial images of the abdomen and pelvis were obtained and displayed. Automated dose lowering techniques and/or adjustment according to patient size were utilized for this exam. This exam was performed with intravenous contrast. CT DOSE: 762.34 mGycm COMPARISON: None available at the time of this dictation. FINDINGS: Lower chest: Bibasilar atelectasis versus scarring is seen. A small amount of pleural fluid is seen bilaterally. Liver: Unremarkable. No focal lesions are seen. Gallbladder and biliary tree: No calcified gallstones. Normal caliber wall. No intra- or extrahepatic biliary ductal dilation. Pancreas: Unremarkable, no focal lesions. Spleen: Unremarkable. Adrenals: Unremarkable. Kidneys and ureters: Subcentimeter hypodensities are too small to characterize. Bladder: Limited evaluation due to underdistention. Reproductive organs: Unremarkable. Bowel: Unremarkable. Lymph nodes Retroperitoneal: Unremarkable. Mesenteric: Unremarkable. Pelvic: Unremarkable. Peritoneum: Normal. Vessels: Unremarkable. Abdominal wall: Unremarkable. Bones: Degenerative changes in the visualized spine. IMPRESSION: No acute abnormalities, in particular no evidence of pyelonephritis. Degenerative changes are seen in the spine without evidence of acute fracture. ACT 112: Negative or not required by law. Electronically signed by: Walter Christianson M.D. 12/01/2021 1:18 PM Dictated:12/01/21 1303 Transcribed: 12/01/21 1303 XR chest 1V portable CLINICAL HISTORY: SEPSIS. COMPARISON STUDY: 02/04/2014 TECHNIQUE: 1 view of the chest FINDINGS: Single frontal view of the chest demonstrates the cardiomediastinal silhouette to be within normal limits. There is a decreased inspiratory effort with elevation of the hemidiaphragms and crowding of the bronchovascular markings at the lung bases and centrally. The lungs are clear of alveolar opacities. There is no evidence for pleural effusion. There is no evidence for vascular congestion. There is no acute osseous pathology. IMPRESSION: 1. There is a decreased inspiratory effort with otherwise no acute chest disease. ACT 112: Negative or not required by law. Electronically signed by: Mike Hussein M.D. 12/01/2021 11:31 AM Dictated:12/01/21 1131 Transcribed: 12/01/21 113 Hospital Course (1) Sepsis: (2) Febrile illness: Sepsis Patient met SIRS criteria with leukocytosis, tachycardia and tachypnea on presentation. Temp 38.3, HR in the 130s, WBC 20K. BP stable, lactic acid 0.7. Possible related to Lyme disease Patient presenting from home with reports of generalized weakness, malaise, nausea, fevers Treated for UTI last week by PCP. Urine culture 11/24 showed no growth. Patient reports urinary symptoms have resolved Lyme IgG positive, IgM equivocal. Western blot pending Anaplasma and Babesia smears negative Blood cx no growth CT ABD/pelvis unremarkable for acute findings Currently on IV doxycycline, will transition to PO doxy (3) HTN (hypertension): BP controlled, continue lisinopril (4) DVT prophylaxis: SCDs/ ambulate Total Time Total Time Spent Total Time Spent (In Minutes): Febrile illness Lyme disease HTN (hypertension) Discharge Plan Discharge Items Patient Disposition: Home - Self-Care Reason For Visit: SEPSIS, LYME Discharge Diagnosis: Febrile illness Lyme disease (abnormal Lyme titer) HTN (hypertension) Activity: Resume your previous activity Non-emergency contact: Primary Care Provider Call non-emergency contact if: you have any medication questions Follow-up/Referrals: Kim Levin DO [Primary Care Provider] - Diet: Heart Healthy Addtl Attending Provider Instructions: Follow up with your primary care provider within 1 week Western blot for lyme confirmation pending ( Your provider will discuss the result with you at your next follow up appointment) Continue doxycycline twice a day for now Fall precaution Seek medical attention if your symptoms reoccur or worsening Pending Studies at Discharge: Yes Studies:: Western blot for Lyme Stand-Alone Forms: [employer], Smoking Cessation Medications and DC Order Prescriptions: New doxycycline hyclate 100 mg Capsule 100 mg PO BID 10 Days Qty: 20 RF: 0 Continued fexofenadine [Abby] 180 mg Tablet 180 mg PO DAILY RF: 0 montelukast 10 mg tablet 10 mg PO HS PRN (Reason: Allergy Symptoms) RF: 0 lisinopril 5 mg tablet 5 mg PO DAILY RF: 0 albuterol sulfate 90 mcg/actuation Hfa Aerosol Inhaler 2 puff INHALATION DIRECTED PRN (Reason: Shortness Of Breath) RF: 0 fluticasone propionate 50 mcg/actuation spray,suspension 2 spray INTRANASAL DAILY RF: 0 Discontinued nitrofurantoin monohyd/m-cryst 100 mg capsule 100 mg PO BID RF: 0 Discharge Orders: Discharge Order (Routine); Ordered 12/03/21 Ordered By: Erum Pena/Other Patient Handouts: Preventing Lyme Disease, ED Lyme Disease Admission Data Admit Date/Time: 12/01/21 15:55 Attending Provider: Erum Champagne Admit Provider: Corin Moncada I. Primary Care Provider: Kim Levin Other Providers: Corin Moncada I.
[2021-12-06 01:16] LABS: 18KDIGG Band NON-REACTIVE; 23KDIGG Band NON-REACTIVE; 23KDIGM Band NON-REACTIVE; 28KDIGG Band NON-REACTIVE; 30KDIGG Band NON-REACTIVE; 39KDIGG Band NON-REACTIVE; 39KDIGM Band NON-REACTIVE; 41KDIGG Band REACTIVE; 41KDIGM Band NON-REACTIVE; 45KDIGG Band REACTIVE; 58KDIGG Band NON-REACTIVE; 66KDIGG Band NON-REACTIVE; 93KDIGG Band NON-REACTIVE; Lyme Antibodies, WB IgG NEGATIVE (NEGATIVE); Lyme Antibodies, WB IgM NEGATIVE (NEGATIVE)
== END 2021-12-03 14:19 | disposition home or self-care (01) | DRG 872 ==
LOC: ED 09:50 → 3E 15:55 → SUATTDRO 15:55 → 3E 18:27